=== PATIENT | female | born 1990 | race Hispanic/Latino ===

== ENCOUNTER 2016-11-09 10:37 | Inpatient (IN) | payer MEDICAID ==
[~2016-11-09] VITALS: Ht 157.5 cm; Wt 73.5 kg
[~2016-11-09 10:37] MED LIST: PREN1TAB69 PO
[2016-11-09] MEDS ORDERED: Sodium Chloride LOK Flush 10 mL Syringe IVFLUSH PRN ×2 (11:30→13:45)
[2016-11-09] MEDS ORDERED: Lactated Ringer's 1,000 ML IV PRN ×2 (11:30→13:43)
[2016-11-09] MEDS ORDERED: Oxytocin 10 Unit/mL Inj IM PRN ×3 (11:30→21:30)
[2016-11-09] MEDS ORDERED: Hemorrhage Kit, Post Partum XX ONE ×3 (11:30→21:30)
[2016-11-09] MEDS ORDERED: Methylergonovine 0.2 mg/mL Inj IM PRN ×3 (11:30→21:30)
[2016-11-09] MEDS ORDERED: Carboprost 250 mCg/mL Inj IM PRN ×3 (11:30→21:30)
[2016-11-09] MEDS ORDERED: Oxytocin 30 Units/500 mL LR 30 UNITS in IV Premix 1 EACH IV PRN ×3 (11:30→21:30)
[2016-11-09 12:53] LABS: Mean Corpuscular Hemoglobin 30.2 pg (27.0-35.0); Mean Corpuscular Volume 90.9 fL (81-100)
[2016-11-09] MEDS: Lactated Ringer's 1,000 ML IV SCH ×3 (13:43→21:43)
[2016-11-09] MEDS ORDERED: Ondansetron 2 mg/mL 2 mL Inj IVPUSH PRN (13:45)
[2016-11-09] MEDS ORDERED: fentaNYL-PF 50 mCg/mL 2 mL Inj IVPUSH PRN (13:45)
--- NOTE | 2016-11-09 15:02 | HP ---
[address] [address] HISTORY AND PHYSICAL PATIENT: TEENA CUTLER : 1990 MR#: [id number] ADMIT: 11/09/2016 JOB ID: [id number] CHIEF COMPLAINT: Leaking fluid. HISTORY OF PRESENTING ILLNESS: This is a 26 years old, 3, para 2-0-0-2, at 37 weeks and 4 days with expected date of delivery of November 26, 2016, dated by last menstrual period and consistent with 19-week ultrasound. The patient presented with history of leaking fluid. It started at 7:30 a.m. today, November 09, 2016. Spontaneous rupture of membrane was confirmed by ROM Plus test. Her cervix is 2 cm and 20%, -3, medium consistency and mid position. Woodall score:3. The patient denies regular contractions. Reports good movement. Fluid color is clear. complicated with: the patient's mother having twins. PAST GYNECOLOGIC HISTORY: Regular menstrual cycles. Denies history of abnormal Pap smears. Denies history of sexually transmitted infections. PAST OBSTETRIC HISTORY: 1. First was 2006. Delivered at term via spontaneous vaginal delivery without anesthesia. Male , 8 pounds. Without or intrapartum or complications. 2. Second was 2009. Delivered at 39 weeks and 2 days via spontaneous vaginal delivery without anesthesia.. Outcome was a male infant, 7 pounds, with no , intrapartum, or complications. PAST MEDICAL HISTORY: Noncontributory. PAST SURGICAL HISTORY: Negative. SOCIAL HISTORY: Denies smoking, alcohol, or illicit drug abuse. MEDICATION: vitamins. ALLERGIES: No known drug allergies. FAMILY HISTORY: Mother had twins. No history of congenital anomalies or developmental delay. Denies history of diabetes or hypertension. Denies family history of cancer. REVIEW OF SYSTEMS: A 10-point review of systems negative except for the items positive in the history of presenting illness. PHYSICAL EXAMINATION: Vital signs: Blood pressure 127/71, heart rate 72, respiratory rate is 12, temperature 36.9. General: Alert, oriented to time, place and person. Neck is supple. Head is normocephalic, atraumatic. Chest: Equal air entry bilaterally. No added sounds. Cardiovascular: Regular rate and rhythm. Abdomen is gravid. No tenderness. Estimated weight by Rah maneuver 8 pounds. Lower extremities: +1 edema bilaterally. Cervix 2 cm, 20% and -3 as per RN exam at 1048 and again at 1124. Woodall score :3. LABORATORIES: LABS: Blood type is O positive. Antibody screening negative at 19 weeks. Rubella immune. RPR nonreactive. Hepatitis B surface antigen nonreactive. HIV nonreactive. Diabetes screening negative at 26 weeks, was 86. Urine culture negative for infection with contamination. Maternal serum screen negative at July 05, 2016. Pap smear within normal limits on July 05, 2016. Gonorrhea and chlamydia screening negative on July 05, 2016. ADMISSION LABS: White blood cells 11, hemoglobin 12.6, hematocrit 37.9, platelets 178. ASSESSMENT: This is a 26 years old, 3, para 2-0-0-2, at 37 weeks and 4 days with premature rupture of membranes with no signs of labor, group B streptococcus negative. Time of rupture was 7:30 a.m. on November 09, 2016. Discussed with the patient expectant management. Thus, induction of labor with Pitocin. Risks, benefits and alternatives of induction were reviewed with the patient in detail. All questions were answered. The patient desires to proceed with induction. Will start Pitocin. Informed consent was signed. MILAN
[2016-11-09] MEDS ORDERED: LANOlin HPA 7 Gm Ointment TOPICAL PRN (21:30)
[2016-11-09] MEDS ORDERED: Witch Hazel-Glycerin Pads TOPICAL PRN (21:30)
[2016-11-09] MEDS ORDERED: Benzocaine (Dermoplast) 20% 60 Gm Spray TOPICAL PRN (21:30)
--- NOTE | 2016-11-10 02:59 | OP ---
[address] [address] OPERATIVE REPORT PATIENT: TEENA CUTLER : 1990 MR#: [id number] ADMIT: 11/09/2016 JOB ID: [id number] DATE OF SURGERY: 11/09/2016 PREOPERATIVE DIAGNOSIS(ES): A 37+ 4 week intrauterine with spontaneous rupture of membranes. POSTOPERATIVE DIAGNOSIS(ES): A 37+ 4 week intrauterine with spontaneous rupture of membranes. SURGEON: Kristyn Oconnell MD PROCEDURE PERFORMED: Spontaneous vaginal delivery of a liveborn male infant, born on November 09, 2016 at 2117 hours weighing 6 pounds 7 ounces with Apgars of 9 at 1 minute, 9 at 5 minutes. ANESTHESIA: Local. ESTIMATED BLOOD LOSS: 200 cc. FLUID REPLACEMENT: Crystalloid in labor. COMPLICATIONS: None apparent. FINDINGS: Liveborn with spontaneous cry and spontaneous movement of all four extremities. INDICATIONS: This is a 26-year-old, G3 para 2-0-0-2 female who presented at 37+ 4 weeks gestation with EDC of November 26, 2016 complaining of spontaneous rupture of membranes. She was checked and noted to be positive for rupture and was then admitted. LABORATORY DATA: Showed a blood type of O+, antibody screen negative, rubella immune, RPR nonreactive, hep B surface antigen negative, HIV negative. DELIVERY NOTE: Pitocin was then started per protocol, and the patient progressed to complete around 9 p.m. the evening of the . The patient was noted to be complete and spontaneously pushing so she was placed in dorsal lithotomy position, prepped and draped in the usual sterile fashion for delivery. She pushed and head delivered spontaneously in the BUTCH position over an intact perineum. Nuchal cord was checked and none was noted. The anterior shoulder delivered easily, followed by the posterior shoulder. The remainder of the infant was then easily delivered. The cord was then clamped and cut after a 60 second cord clamping delay. The cord blood was obtained. Pitocin was started per protocol. The placenta delivered intact spontaneously and was passed off the table. Bimanual massage revealed no remaining placental membranes present. Examination of the perineum showed a first-degree laceration, which was repaired with a single figure of eight stitch using 3-0 Vicryl after injection with local anesthetic. The patient tolerated the procedure well. Recovered in labor and delivery with her . All sponge, needle, and instrument counts were correct.
[2016-11-10] MEDS: Lactated Ringer's 1,000 ML IV SCH ×4 (05:30→13:43)
[2016-11-10 06:51] LABS: Mean Corpuscular Volume 90.5 fL (81-100)
[2016-11-10] MEDS ORDERED: Ascorbic Acid 500 mg Tablet PO SCH (08:00)
--- NOTE | 2016-11-10 13:55 | PCM.DIOB ---
Obstetrical Disch Instruction Date of Service: November 10, 2016 Dates of Hospitalization Date of Hospital Admission November 09, 2016 at 10:55 Providers Admitting Physician: Ana Maria Lam MD Primary Care Physician: Ana Maria Lam MD Attending Physician: Ana Maria Lam MD Discharge Diagnosis Discharge Diagnosis day 1, S/p Problems: Diet Discharge Diet: No restrictions Activity Discharge Activity-General: Pelvic Rest for 6 weeks, No lifting >10 pounds for 4-6 weeks Dressing and Incisional Care Hygiene: October shower Follow Up Plan Follow-up Provider (F9): Ana Maria Lam MD Follow-up appointment: Weeks (2) Call your provider for: Fever or Chills, Shortness of breath, Heavy vaginal bleeding, Other (excessive pain not controlled with pain medications.) Ana Maria Lam MD November 10, 2016 13:55
[2016-11-10] MEDS ORDERED: DOCU-41 PO (13:57)
[2016-11-10] MEDS ORDERED: IBUP-1827 PO (13:57)
[2016-11-10 14:48] VITALS: BP 106/58; PULSE 73; RESP 18
--- NOTE | 2016-11-11 10:44 | DIS ---
[address] [address] DISCHARGE SUMMARY PATIENT: TEENA CUTLER : 1990 MR#: [id number] ADMIT: 11/09/2016 JOB ID: [id number] DIS: 11/10/2016 ADMIT DIAGNOSIS: 3, para 2-0-0-2, at 37 weeks and 4 days gestational age with premature rupture of membranes. Induction of labor. DISCHARGE DIAGNOSIS: day #1, status post spontaneous vaginal delivery. HOSPITAL COURSE: For further details, please refer to the fully dictated notes. On the day of discharge, the patient had no complaints. Voiding, ambulating, tolerating p.o. intake. with no difficulties. OBJECTIVE: Vital signs are 106/58 for blood pressure. Respirations are 18, pulse is 73, temperature 37.0 degrees centigrade. Heart is regular rate and rhythm. Positive S1, S2. Lungs: Clear to auscultation bilaterally. Abdomen: Firm. Uterine fundus palpated 2 cm below the umbilicus. Nontender. Positive bowel sounds. Nondistended abdomen. Perineum: No active bleeding. Lower extremities: No calf tenderness appreciated bilaterally. H and H on day #1 are 11.7 and 35.3. DISCHARGE PLAN: The patient will be discharged home in stable condition. Will follow up with Dr. Lam in the office in two weeks. Instructed to have nothing in the vagina for six weeks. No heavy lifting more than baby's weight. Instructed to call for fever, chills, severe abdominal pain not controlled with pain medication, heavy vaginal bleeding, or any other concerning symptoms. DISCHARGE MEDICATIONS: 1. Ibuprofen 600 mg every 6 hours as needed. 2. Colace 100 mg twice daily. 3. vitamins once daily. The patient understood the discharge instructions. She will comply with her discharge plan. MILAN
== END 2016-11-10 15:44 | disposition home or self-care (01) | DRG 560 ==
LOC: FBCO 10:37 → FBC 10:55
PROVIDERS: ADMIT Obstetrics & Gynecology; ATTEND Obstetrics & Gynecology
PROC: 10E0XZZ Delivery of Products of Conception, External Approach (ICD-10-PCS; principal; 2016-11-09)
PROC: 0HQ9XZZ Repair Perineum Skin, External Approach (ICD-10-PCS; 2016-11-09)
DX: O42.02 Full-term premature rupture of membranes, onset of labor within 24 hours of rupture (principal); O70.0 First degree perineal laceration during delivery; Z3A.37 37 weeks gestation of pregnancy; Z37.0 Single live birth